=== PATIENT | female | born 1950 | race Caucasian/White ===

== ENCOUNTER → 2018-06-30 14:19 | Outpatient (CLI) | payer OTHER, SELFPAY ==
--- NOTE | 2018-06-30 | DI.MG.S_ITS ---
BILATERAL DIGITAL SCREENING MAMMOGRAM 3D/2D WITH CAD: 06/30/2018 CLINICAL: Routine screening. Family history of breast cancer. Comparison is made to exams dated: 08/21/2016 mammogram, 09/18/2013 mammogram, and 05/08/2012 mammogram - [facility]. The tissue of both breasts is heterogeneously dense. This may lower the sensitivity of mammography. Current study was also evaluated with a Computer Aided Detection (CAD) system. No significant masses, calcifications, or other findings are seen in either breast. There has been no significant interval change. IMPRESSION: NEGATIVE There is no mammographic evidence of malignancy. A 1 year screening mammogram is recommended. This exam was interpreted at Station ID: [id number]. NOTE: For mammograms, a report in lay terms will be sent to the patient. Approximately 15% of breast malignancies will not be visualized mammographically. In the management of a palpable breast mass, a negative mammogram must not discourage biopsy of a clinically suspicious lesion. Electronically Signed By: Zohaib pena/adina:06/30/2018 17:39:27 letter sent: Normal Exam ACR BI-RADS Category 1: Negative 3341F
== END ==
PROVIDERS: Family Provider Physician Assistant; PCP Physician Assistant; Visit Provider Physician Assistant
DX: Z12.31 Encounter for screening mammogram for malignant neoplasm of breast (principal); Z80.3 Family history of malignant neoplasm of breast
CPT/HCPCS: 77063; 77067

== ENCOUNTER → 2019-12-11 14:07 | Outpatient (CLI) | payer OTHER, SELFPAY ==
--- NOTE | 2019-12-11 | DI.MRI.S_ITS ---
PROCEDURE: MR CERVICAL SPINE WO CON INDICATIONS: Neck and bilateral shoulder pain TECHNIQUE: Noncontrast sagittal T1 spin echo and T2 fast spin echo, sagittal STIR, foraminal oblique sagittal T2 fast spin echo, and axial gradient echo or T2 fast spin echo through the cervical spine. COMPARISON: None. FINDINGS: Image quality: Diagnostic, with note made of motion artifact. Alignment and Curvature: There is normal bony alignment. Bone Marrow: Marrow demonstrates normal overall signal. Spinal Cord: Visualized spinal cord has normal size and signal. No cerebellar tonsillar herniation. Paraspinous Soft Tissues: No paravertebral masses. Prevertebral soft tissues are normal in thickness. C2-C3: Mild loss of disc height is seen. Loss of disc signal is seen. A mild degree of generalized disc osteophyte complex is seen. There is a mild central disc osteophyte protrusion seen. Mild facet joint hypertrophy is seen. There is mild to moderate left-sided and minimal right-sided neural foraminal narrowing seen. The central canal is widely patent. C3-C4: [id number] loss of disc height and disc signal can be seen. Moderate disc osteophyte complex is seen, which is eccentric to the right. There is moderate right-sided and mild left-sided facet hypertrophy seen. There is at least moderate right-sided and moderate left-sided neural foraminal narrowing seen. Mild central canal narrowing is seen. C4-C5: Moderate to severe loss of disc height and disc signal are seen. At least moderate disc osteophyte complex is seen, which is slightly eccentric to the right. Uncovertebral joint hypertrophy is seen at this level. Mild to moderate facet hypertrophy is seen. There is moderate to severe bilateral neural foraminal narrowing seen, right worse than left. Moderate to severe central canal narrowing is seen. There is associated mass effect upon the ventral spinal cord. C5-C6: At least moderate loss of disc height and disc signal can be seen. Moderate disc osteophyte complex is seen, which is eccentric to the left. Uncovertebral joint hypertrophy is seen at this level. Mild to moderate facet hypertrophy is seen. There is moderate to severe right-sided and moderate left-sided neural foraminal narrowing seen. Mild to moderate central canal narrowing is seen. There is associated mass effect upon the ventral spinal cord. C6-C7: At least moderate loss of disc height and disc signal can be seen. Moderate prominent disc osteophyte complex is seen, which is eccentric to the left. There is a mild left lateral recess disc osteophyte protrusion seen. Mild to moderate facet hypertrophy is seen. There is moderate to severe left-sided and moderate right-sided neural foraminal narrowing seen. Mild to moderate central canal narrowing is seen. C7-T1: Pdgu-hd-imemasoy loss of disc height and disc signal can be seen. A mild degree of generalized disc osteophyte complex is seen. There is mild to moderate right-sided and no significant left-sided neural foraminal narrowing seen. The central canal is widely patent. IMPRESSION: Multiple levels of cervical spine degenerative change are seen, which are overall most prominent at the C4-C5 level. Dictated by: Rishabh Dao M.D. on 12/11/2019 at 15:58 Approved by: Rishabh Dao M.D. on 12/11/2019 at 16:02
== END ==
PROVIDERS: Family Provider Physician Assistant; PCP Nurse Practitioner; Referring Provider Nurse Practitioner; Visit Provider Physician Assistant Surgical
DX: M54.2 Cervicalgia (principal); M25.511 Pain in right shoulder; M25.512 Pain in left shoulder; M47.812 Spondylosis without myelopathy or radiculopathy, cervical region
CPT/HCPCS: 72141

== ENCOUNTER → 2020-03-09 12:49 | Outpatient (CLI) | payer OTHER, SELFPAY ==
--- NOTE | 2020-03-09 13:21 | DI.RAD.S_ITS ---
PROCEDURE: XR CERVICAL SPINE 4V OR 5V INDICATIONS: neck pain TECHNIQUE: 5 views of the cervical spine acquired. COMPARISON: None. FINDINGS: Bones: No fractures or dislocations to the T1 level. Oblique images demonstrate no bony foraminal stenoses. Note is made of moderate C4-5 and watx-sx-[id number] C5-6 and C6-7 degenerative disc disease with most prominent projecting osteophytes involving the C4-5 and C5-6 levels. On the oblique views there is only a slight degree of foraminal stenosis associated with this appearance. Soft tissues: No prevertebral soft tissue swelling. IMPRESSION: The degenerative disc disease is more prominent with endplate osteophyte formation than is facet osteoarthritis in this patient. Mild foraminal stenosis as noted, moderate degenerative disc disease is present as detailed. No trauma. Dictated by: Sherwin Major M.D. on 03/09/2020 at 16:03 Approved by: Sherwin Major M.D. on 03/09/2020 at 16:05
== END ==
PROVIDERS: Family Provider Physician Assistant; PCP Nurse Practitioner; Referring Provider Physician Assistant Surgical; Visit Provider Physical Medicine & Rehabilitation
DX: S00.83XA Contusion of other part of head, initial encounter (principal); M50.121 Cervical disc disorder at C4-C5 level with radiculopathy; M48.02 Spinal stenosis, cervical region; R51.9 Headache, unspecified; M19.011 Primary osteoarthritis, right shoulder; X58.XXXA Exposure to other specified factors, initial encounter
CPT/HCPCS: 72050; 99214

== ENCOUNTER → 2020-04-25 11:32 | Outpatient (CLI) | payer OTHER, SELFPAY ==
--- NOTE | 2020-04-25 11:34 | DI.RAD.S_ITS ---
PROCEDURE: XR LUMBAR SPINE MIN 4V INDICATIONS: LBP TECHNIQUE: 5 views of the lumbar spine were acquired. COMPARISON: None. FINDINGS: Bones: 5 nonrib-bearing vertebrae are present. There is mildly levo scoliotic bony alignment. No vertebral body compression fractures. No suspicious bony lesions. Note is made of a moderate degree of degenerative disc height reduction at L5-S1 and a moderately severe degree of degenerative facet osteoarthritis at L4-5 and L5-S1, to the degree that significant spinal and foraminal stenosis may be present in this region. There is slight anterolisthesis grade 1 of L5 on S1. Soft tissues: Overlying bowel gas pattern is normal. No suspicious soft tissue calcifications. Oblique images: No pars defects. IMPRESSION: No compression fracture has developed. There is a moderate to moderately severe degree of degenerative disc disease and facet osteoarthritis over the low lumbosacral spine, with mild grade 1 anterolisthesis of L5 on S1. Spinal and foraminal stenosis would be suspected as a result. Dictated by: Sherwin Major M.D. on 04/25/2020 at 14:01 Approved by: Sherwin Major M.D. on 04/25/2020 at 14:04
== END ==
PROVIDERS: Family Provider Physician Assistant; PCP Nurse Practitioner; Referring Provider Physical Medicine & Rehabilitation; Visit Provider Physical Medicine & Rehabilitation
DX: M54.5 Low back pain (principal); R20.2 Paresthesia of skin; M51.37 Other intervertebral disc degeneration, lumbosacral region; M47.817 Spondylosis without myelopathy or radiculopathy, lumbosacral region; M43.17 Spondylolisthesis, lumbosacral region
CPT/HCPCS: 72110

== ENCOUNTER → 2020-10-28 13:20 | Outpatient (CLI) | payer OTHER, SELFPAY ==
--- NOTE | 2020-10-28 | DI.MG.S_ITS ---
BILATERAL DIGITAL SCREENING MAMMOGRAM 3D/2D WITH CAD: 10/28/2020 CLINICAL: Routine screening. Family history of breast cancer. Comparison is made to exams dated: 06/30/2018 mammogram, 08/21/2016 mammogram, and 09/18/2013 mammogram - [facility]. The tissue of both breasts is heterogeneously dense. This may lower the sensitivity of mammography. Current study was also evaluated with a Computer Aided Detection (CAD) system. No significant masses, calcifications, or other findings are seen in either breast. There has been no significant interval change. IMPRESSION: NEGATIVE There is no mammographic evidence of malignancy. A 1 year screening mammogram is recommended. This exam was interpreted at Station ID: [id number]. NOTE: For mammograms, a report in lay terms will be sent to the patient. Approximately 15% of breast malignancies will not be visualized mammographically. In the management of a palpable breast mass, a negative mammogram must not discourage biopsy of a clinically suspicious lesion. Electronically Signed By: Yusuf serrato/adina:10/28/2020 13:52:18 letter sent: Normal Exam ACR BI-RADS Category 1: Negative [id number]
== END ==
PROVIDERS: Family Provider Physician Assistant; PCP Nurse Practitioner; Referring Provider Nurse Practitioner; Visit Provider Nurse Practitioner
DX: Z12.31 Encounter for screening mammogram for malignant neoplasm of breast (principal); Z80.3 Family history of malignant neoplasm of breast
CPT/HCPCS: 77063; 77067

== ENCOUNTER → 2020-12-15 18:32 | Outpatient (CLI) | payer OTHER, SELFPAY | PROVIDERS: Family Provider Physician Assistant; PCP Nurse Practitioner; Referring Provider Physician Assistant; Visit Provider Physician Assistant | DX: S81.831A Puncture wound without foreign body, right lower leg, initial encounter (principal) | CPT/HCPCS: 87070; 87075; 87205 ==